=== PATIENT | female | born 1975 | race Caucasian/White ===

== ENCOUNTER 2017-12-06 18:11 | Emergency (ER) | payer OTHER ==
[2017-12-06 18:22] VITALS: BP 160/110
[2017-12-06] MEDS ORDERED: diphenhydrAMINE 50 MG/ML SDV IVPUSH ONE (18:54)
[2017-12-06] MEDS ORDERED: Sodium Chloride 0.9% 10 ML Syringe FLUSH PRN (18:54)
[2017-12-06] MEDS ORDERED: Ketorolac 30 MG/ML SDV IVPUSH ONE (18:54)
[2017-12-06] MEDS ORDERED: Prochlorperazine 10 MG/2 ML SDV IVPUSH ONE (18:54)
--- NOTE | 2017-12-06 18:59 | EDM.PDOC ---
ED HPI GENERAL MEDICAL PROBLEM - General Chief Complaint: Headache Stated Complaint: MIGRAINE Time Seen by Provider: 12/06/17 18:36 Source of Information: Reports: Patient, Old Records, RN Notes Reviewed History Limitations: Reports: No Limitations - History of Present Illness INITIAL COMMENTS - FREE TEXT/NARRATIVE: Brought in by her Chief complaint Headache with vomiting, like previous migraines History of present illness 42-year-old female with history of infrequent migraines that usually present with photophobia nausea vomiting photophobia as this one doesn't well. Started 2 days ago. 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, works again tomorrow History of hypertension and dysthymia No history of stroke No weakness No problems with walking - Related Data Allergies Allergy/AdvReac Type Severity Reaction Status Date / Time acetaminophen [From Lortab] Allergy Itching Verified 10/11/15 17:00 hydrocodone bitartrate Allergy Itching Verified 10/11/15 17:00 [From Lortab] tramadol Allergy Itching Verified 10/11/15 17:00 Home Meds: Home Meds Metoprolol Tartrate [Metoprolol Tartrate] 11/09/15 [History] Metoprolol Tartrate [Metoprolol Tartrate] 25 mg PO DAILY 12/06/17 [History] Venlafaxine HCl [Venlafaxine HCl ER] 75 mg PO DAILY 12/06/17 [History] Past Medical History HEENT History: Reports: Impaired Vision Cardiovascular History: Reports: Hypertension, Other (See Below) Other Cardiovascular History: Borderline 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: , Other (See Below) Other OB/BYN History: tubal Musculoskeletal History: Reports: Fracture Other Musculoskeletal History: l ankle fx Neurological History: Reports: Migraines Psychiatric History: Reports: Depression - Infectious Disease History Infectious Disease History: Reports: Chicken Pox - Past Surgical History GI Surgical History: Reports: Cholecystectomy Social & Family History - Tobacco Use Smoking Status *Q: Never Smoker Second Hand Smoke Exposure: No - Caffeine Use Caffeine Use: Reports: Coffee, Soda - Recreational Drug Use Recreational Drug Use: Yes Drug Use in Last 12 Months: Yes - Living Situation & Occupation Living situation: Reports: , with Spouse ED ROS GENERAL - Review of Systems Review Of Systems: See Below Constitutional: Reports: No Symptoms HEENT: Reports: Rhinitis. Denies: Ear Pain, Throat Pain Respiratory: Reports: No Symptoms Cardiovascular: Reports: No Symptoms Endocrine: Reports: No Symptoms GI/Abdominal: Reports: Abdominal Pain (After vomiting), Decreased Appetite, Nausea, Vomiting. Denies: Diarrhea : Reports: No Symptoms Musculoskeletal: Reports: No Symptoms Skin: Reports: No Symptoms Neurological: Reports: Headache. Denies: Confusion, Trouble Speaking, Difficulty Walking, Change in Speech Psychiatric: Reports: No Symptoms Hematologic/Lymphatic: Reports: No Symptoms Immunologic: Reports: No Symptoms - Physical Exam Exam: See Below Exam Limited By: No Limitations General Appearance: Alert, Mild Distress (Photophobia, Elevated blood pressure, no difficulty speaking, looks tired), Other Eye Exam: Bilateral Eye: EOMI, Normal Inspection Ears: Normal External Exam, Hearing Grossly Normal Nose: Normal Inspection Throat/Mouth: Normal Inspection, Normal Oropharynx Head Exam: Atraumatic Neck: Normal Inspection, Non-Tender Respiratory/Chest: No Respiratory Distress, No Accessory Muscle Use Cardiovascular: Normal Peripheral Pulses, Regular Rate, Rhythm GI/Abdominal: Normal Bowel Sounds, Tender (Mild epigastric) Neuro Exam (Abbreviated): Oriented, No Motor/Sensory Deficits, Other (Strength normal) Back Exam: Normal Inspection Extremities: Normal Inspection Psychiatric: Normal Mood Skin Exam: Warm, Dry, Intact, Normal Color Course - Vital Signs Last Recorded V/S: Last Vital Signs Temp 36.4 C 12/06/17 18:19 Pulse 88 12/06/17 18:19 Resp 16 12/06/17 18:19 BP 160/110 H 12/06/17 18:19 Pulse Ox 97 12/06/17 18:19 - Orders/Labs/Meds Orders: Active Orders 24 hr Category Date Time Status Peripheral IV Care [RC] . DIRECTED Care 12/06/17 18:54 Inactive Meds: Medications Discontinued Medications Generic Name Dose Route Start Last Admin Trade Name Mary PRN Reason Stop Dose Admin Diphenhydramine HCl 50 mg 12/06/17 18:54 Benadryl IVPUSH 12/06/17 18:55 ONETIME ONE Sodium Chloride 1,000 mls @ 500 mls/hr 12/06/17 19:00 Normal Saline IV ASDIRECTED [facility] Ketorolac Tromethamine 15 mg 12/06/17 18:54 Toradol IVPUSH 12/06/17 18:55 ONETIME ONE Ketorolac Tromethamine 30 mg 12/06/17 19:05 12/06/17 19:10 Toradol IM 12/06/17 19:06 30 mg ONETIME ONE Administration Prochlorperazine Edisylate 5 mg 12/06/17 18:54 Compazine IVPUSH 12/06/17 18:55 ONETIME ONE Promethazine HCl 25 mg 12/06/17 19:05 12/06/17 19:11 Phenergan IM 12/06/17 19:06 25 mg ONETIME ONE Administration Sodium Chloride 10 ml 12/06/17 18:54 Saline Flush FLUSH ASDIRECTED PRN Keep Vein Open - Re-Assessments/Exams Free Text/Narrative Re-Assessment/Exam: 42-year-old female with a headache similar to previously diagnosed migraines, onset 2 days ago, nausea photophobia Normal neurological exam Intravenous saline, Compazine 5 mg, Benadryl 50 mg and Toradol 15 mg IV 12/06/17 19:06 Ordered changed to intramuscular injection per request of patient, Phenergan 25 mg and Toradol 30 mg IM 12/06/17 19:57 Improved at the present time Departure - Departure Time of Disposition: 19:57 Disposition: Home, Self-Care 01 Condition: Good Clinical Impression: Migraine without aura and without status migrainosus, not intractable - Discharge Information Instructions: Migraine Headache Referrals: Flory Borges CNM [Primary Care Provider] - Forms: ED Department Discharge Additional Instructions: Rest at home tonight Follow-up with your physician if you have persisting headaches - My Orders Last 24 Hours: My Active Orders 12/06/17 18:54 Peripheral IV Care [RC] . DIRECTED - Assessment/Plan Last 24 Hours: My Active Orders 12/06/17 18:54 Peripheral IV Care [RC] . DIRECTED
[2017-12-06] MEDS ORDERED: Sodium Chloride 0.9% 1,000 ML IV SCH (19:00)
[2017-12-06] MEDS ORDERED: Promethazine 25 MG/ML SDV IM ONE (19:05)
[2017-12-06] MEDS ORDERED: Ketorolac 30 MG/ML SDV IM ONE (19:05)
== END 2017-12-06 20:02 | disposition home or self-care (01) ==
LOC: JP.ED 18:11
DX: G43.009 Migraine without aura, not intractable, without status migrainosus (principal); I10 Essential (primary) hypertension; Z88.8 Allergy status to other drugs, medicaments and biological substances; Z79.899 Other long term (current) drug therapy
CPT/HCPCS: 96372; 96374; 96375; 99283; J1885; J2550

== ENCOUNTER 2018-06-13 23:11 | Emergency (ER) | payer OTHER ==
[2018-06-13 23:31] VITALS: BP 154/100
--- NOTE | 2018-06-13 23:42 | EDM.PDOC ---
ED HPI GENERAL MEDICAL PROBLEM - General Chief Complaint: Headache Stated Complaint: MIGRAINES Time Seen by Provider: 06/13/18 23:34 Source of Information: Reports: Patient, Family, RN Notes Reviewed History Limitations: Reports: No Limitations - History of Present Illness INITIAL COMMENTS - FREE TEXT/NARRATIVE: 43-year-old female presents to the emergency department today complaint of migraine headache, she has a known history of migraines states this is typical for her she has photophobia some nausea and pounding frontal headache. She has taken her usual medications at home without any relief migraine Pain Score (Numeric/FACES): 8 - Related Data Allergies Allergy/AdvReac Type Severity Reaction Status Date / Time acetaminophen [From Lortab] Allergy Itching Verified 06/13/18 23:25 hydrocodone bitartrate Allergy Itching Verified 06/13/18 23:25 [From Lortab] tramadol Allergy Itching Verified 06/13/18 23:25 Home Meds: Home Meds Metoprolol Tartrate 25 mg PO DAILY 12/06/17 [History] Venlafaxine HCl [Venlafaxine HCl ER] 75 mg PO DAILY 12/06/17 [History] Past Medical History HEENT History: Reports: Impaired Vision Cardiovascular History: Reports: Hypertension Other Cardiovascular History: Borderline Gastrointestinal History: Reports: Cholelithiasis 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 COSTING ANALYST History: tubal Musculoskeletal History: Reports: Fracture Other Musculoskeletal History: l ankle fx Neurological History: Reports: Migraines Psychiatric History: Reports: Depression - Infectious Disease History Infectious Disease History: Reports: Chicken Pox - Past Surgical History GI Surgical History: Reports: Cholecystectomy Female Surgical History: Reports: Hysterectomy, Tubal Ligation Musculoskeletal Surgical History: Reports: Arthroscopic Knee Social & Family History - Tobacco Use Smoking Status *Q: Never Smoker - Caffeine Use Caffeine Use: Reports: Coffee - Recreational Drug Use Recreational Drug Use: No - Living Situation & Occupation Living situation: Reports: , with Spouse ED ROS GENERAL - Review of Systems Review Of Systems: See Below Constitutional: Reports: No Symptoms HEENT: Reports: Other (Photophobia) GI/Abdominal: Reports: Nausea Neurological: Reports: Headache - Physical Exam Exam: See Below Exam Limited By: No Limitations General Appearance: Alert, Mild Distress Eye Exam: Bilateral Eye: EOMI, Normal Fundi, Normal Inspection Respiratory/Chest: No Respiratory Distress Course - Vital Signs Last Recorded V/S: Last Vital Signs Temp 97.5 F 06/13/18 23:26 Pulse 76 06/13/18 23:26 Resp 16 06/13/18 23:26 BP 154/100 H 06/13/18 23:26 Pulse Ox 97 06/13/18 23:26 - Orders/Labs/Meds Orders: Active Orders 24 hr Category Date Time Status Peripheral IV Care [RC] . DIRECTED Care 06/13/18 23:40 Active Sodium Chloride 0.9% [Saline Flush] Med 06/13/18 23:40 Active 10 ml FLUSH ASDIRECTED PRN Peripheral IV Insertion Adult [OM.PC] Urgent Oth 06/13/18 23:40 Ordered Medication Orders Sodium Chloride (Saline Flush) 10 ml FLUSH ASDIRECTED PRN PRN Reason: Keep Vein Open Last Admin: 06/13/18 23:56 Dose: 10 ml Meds: Medications Generic Name Dose Route Start Last Admin Trade Name Freq PRN Reason Stop Dose Admin Sodium Chloride 10 ml 06/13/18 23:40 06/13/18 23:56 Saline Flush FLUSH 10 ml ASDIRECTED PRN Administration Keep Vein Open Discontinued Medications Generic Name Dose Route Start Last Admin Trade Name Freq PRN Reason Stop Dose Admin Diphenhydramine HCl 50 mg 06/13/18 23:38 06/13/18 23:52 Benadryl IVPUSH 06/13/18 23:39 50 mg ONETIME ONE Administration Promethazine HCl 12.5 mg/ 50.5 mls @ 200 mls/hr 06/13/18 23:38 06/13/18 23:55 Sodium Chloride IV 06/13/18 23:53 200 mls/hr NOW STA Administration Lactated Ringer's 1,000 mls @ 999 mls/hr 06/13/18 23:40 06/13/18 23:51 Ringers, Lactated IV 06/14/18 00:40 999 mls/hr BOLUS ONE Administration Ketorolac Tromethamine 30 mg 06/13/18 23:38 06/13/18 23:54 Toradol IVPUSH 06/13/18 23:39 30 mg ONETIME ONE Administration Departure - Departure Time of Disposition: 00:57 Disposition: Home, Self-Care 01 Condition: Good (She) Clinical Impression: Migraine without aura and without status migrainosus, not intractable - Discharge Information Referrals: Flory Borges CNM [Primary Care Provider] - Forms: ED Department Discharge Additional Instructions: try the Imitrex at the moment you feel a migraine building, Please followup with your primary care provider in 3-5 days if not better, please call return to the emergency department with worsening of symptoms. - My Orders Last 24 Hours: My Active Orders 06/13/18 23:40 Peripheral IV Care [RC] . DIRECTED Sodium Chloride 0.9% [Saline Flush] 10 ml FLUSH ASDIRECTED PRN Peripheral IV Insertion Adult [OM.PC] Urgent - Assessment/Plan Last 24 Hours: My Active Orders 06/13/18 23:40 Peripheral IV Care [RC] . DIRECTED Sodium Chloride 0.9% [Saline Flush] 10 ml FLUSH ASDIRECTED PRN Peripheral IV Insertion Adult [OM.PC] Urgent Plan: Assessment Acuity = acute Site and laterality = migraine headache without aura not intractable Etiology = unknown etiology Manifestations = none Location of injury = Home Lab values = none Plan Good improvement with 1 L of fluids, Toradol, Benadryl and promethazine. Prescription written for Imitrex 50 mg tablets 1 by mouth as needed total #6 follow-up primary care 3-5 days if not better This note was dictated using [employer] voice recognition software please call with any questions on syntax or grammar.
[2018-06-13] MEDS: Lactated Ringers 1,000 ML IV ONE (23:51)
[2018-06-13] MEDS: diphenhydrAMINE 50 MG/ML SDV IVPUSH ONE (23:52)
[2018-06-13] MEDS: Ketorolac 30 MG/ML SDV IVPUSH ONE (23:54)
[2018-06-13] MEDS: Promethazine 12.5 MG in Sodium Chloride 0.9% 50 ML IV STA (23:55)
[2018-06-13] MEDS: Sodium Chloride 0.9% 10 ML Syringe FLUSH PRN (23:56)
== END 2018-06-14 01:05 | disposition home or self-care (01) ==
LOC: JP.ED 23:11
DX: G43.009 Migraine without aura, not intractable, without status migrainosus (principal); I10 Essential (primary) hypertension; Z88.8 Allergy status to other drugs, medicaments and biological substances; Z88.5 Allergy status to narcotic agent; Z79.899 Other long term (current) drug therapy
CPT/HCPCS: 96361; 96374; 96375; 99283; J1200; J1885; J2550; J7050; J7120